=== PATIENT | female | born 1990 | race Caucasian/White ===

== ENCOUNTER 2017-03-08 19:42 | Emergency (ER) | payer BC, OTHER ==
[2017-03-08] MEDS ORDERED: LORazepam 2 MG/ML SYRINGE IV STA (19:52)
[2017-03-08] MEDS ORDERED: SODIUM CHLORIDE 0.9% 1,000 ML IV STA (19:52)
[2017-03-08 19:58] VITALS: BP 125/66; PULSE 113; RESP 16; TEMP 99
--- NOTE | 2017-03-08 20:01 | ED ---
General Adult HPI - General Chief complaint: Seizure Stated complaint: Seizure Time Seen by Provider: 03/08/17 19:44 Source: patient, EMS, RN notes reviewed Mode of arrival: EMS Limitations: no limitations - History of Present Illness Initial comments: 27-year-old female presents to the emergency Department chief complaint of seizure. Patient states she was in her car and the next thing EMS was there. Family and they could not wake her up. Patient does have a history of seizures and when EMS arrived he states she was groggy and now she is return to normal. Patient states she is no pain or discomfort. She was sitting in her heart during the procedure there is no falling or trauma.Patient denies any recent fever, chills, shortness of breath, chest pain, back pain, abdominal pain, nausea vomiting, numbness or tingling, dysuria or hematuria, constipation or diarrhea, headaches or visual changes, or any other current symptoms. - Related Data Home Medications Medication Instructions Recorded Confirmed No Known Home Medications [No 01/01/14 03/08/17 Known Home Medications] Allergies Allergy/AdvReac Type Severity Reaction Status Date / Time cefaclor [From [facility]] Allergy Anaphylaxis Verified 03/08/17 19:44 Review of Systems ROS Statement: Those systems with pertinent positive or pertinent negative responses have been documented in the HPI. ROS Other: All systems not noted in ROS Statement are negative. Past Medical History Past Medical History: Seizure Disorder History of Any Multi-Drug Resistant Organisms: None Reported Past Surgical History: Tubal Ligation Past Anesthesia/Blood Transfusion Reactions: No Reported Reaction Past Psychological History: Bipolar Smoking Status: Current every day smoker Past Alcohol Use History: Occasional Past Drug Use History: None Reported General Exam - General Exam Comments Initial Comments: General: The patient is awake and alert, in no distress, and does not appear acutely ill. Eye: Pupils are equal, round and reactive to light, extra-ocular movements are intact; there is normal conjunctiva bilaterally. No signs of icterus. Ears, nose, mouth and throat: There are moist mucous membranes and no oral lesions. Neck: The neck is supple, there is no tenderness. Cardiovascular: There is a regular rate and rhythm. No murmur, rub or gallop is appreciated. Respiratory: Lungs are clear to auscultation, respirations are non-labored, breath sounds are equal. No wheezes, stridor, rales, or rhonchi. Gastrointestinal: Soft, non-distended, non-tender abdomen without masses or organomegaly noted. There is no rebound or guarding present. No CVA tenderness. Bowel sounds are unremarkable. Back: There is no tenderness to palpation in the midline. There is no obvious deformity. No rashes noted. Musculoskeletal: Normal ROM, no tenderness, There is no pedal edema. There is no calf tenderness or swelling. Sensation intact. Pulses equal bilaterally 2+. Neurological: CN II-XII intact, There are no obvious motor or sensory deficits. Coordination appears grossly intact. Speech is normal. Skin: Skin is warm and dry and no rashes or lesions are noted. Psychiatric: Cooperative, appropriate mood & affect, normal judgment. Limitations: no limitations Course Vital Signs 03/08/17 19:44 Temperature 99 F Pulse Rate 113 H Respiratory 16 Rate Blood Pressure 125/66 O2 Sat by Pulse 98 Oximetry Medical Decision Making - Medical Decision Making 27-year-old female presents to the emergency department with a chief complaint of seizure. At this time we discussed that there is no driving until cleared by neurologist. We would like to do blood work to further evaluate for the patient. At this time she has chose to leave AMA. We did discuss the risks of this. We discussed that she cannot drive. We discussed all the patient's questions. She states she understood but she will be leaving at this time. Disposition Clinical Impression: Generalized seizure Disposition: Left Against Medical Advice Additional Instructions: No driving until cleared by your neurologist. Referrals: Feliciano Ruiz MD [Primary Care Provider] - 1-2 days
== END 2017-03-08 20:10 | disposition left against medical advice (07) ==
LOC: EC 19:42
DX: R56.9 Unspecified convulsions (principal); F17.200 Nicotine dependence, unspecified, uncomplicated; Z88.1 Allergy status to other antibiotic agents
CPT/HCPCS: 99284

== ENCOUNTER 2017-08-18 16:03 | Emergency (ER) | payer BC, OTHER ==
[2017-08-18 16:48] VITALS: RESP 18
--- NOTE | 2017-08-18 17:19 | ED ---
Upper Extremity HPI - General Chief Complaint: Extremity Injury, Upper Stated Complaint: hand injury-[facility] Time Seen by Provider: 08/18/17 17:13 Source: patient, RN notes reviewed Mode of arrival: ambulatory Limitations: no limitations - History of Present Illness Initial Comments: 27-year-old female presents emergency Department chief complaint left hand contusion. Patient states that she was at work and states that she was swinging her arm back fourth and hit a metal cart. Patient states that there is swelling and discomfort. This happened this morning. She states she started urgent care waiting for 3 hours and she was never taken back. She denies any paresthesias. She is right-hand dominant. Patient offers no prior injuries - Related Data Home Medications Medication Instructions Recorded Confirmed Ibuprofen [Motrin] 200 - 400 mg PO Q6HR PRN 03/08/17 08/18/17 Previous Rx's Medication Instructions Recorded Ibuprofen [Motrin] 600 mg PO Q8HR PRN #30 tab 08/18/17 traMADol HCl [Ultram] 50 mg PO Q6H PRN #20 tab 08/18/17 Allergies Allergy/AdvReac Type Severity Reaction Status Date / Time cefaclor [From Ceclor] Allergy Anaphylaxis Verified 08/18/17 17:25 Review of Systems ROS Statement: Those systems with pertinent positive or pertinent negative responses have been documented in the HPI. ROS Other: All systems not noted in ROS Statement are negative. Past Medical History Past Medical History: Seizure Disorder Additional Past Medical History / Comment(s): epilepsy History of Any Multi-Drug Resistant Organisms: None Reported Past Surgical History: No Surgical Hx Reported, Tubal Ligation Past Anesthesia/Blood Transfusion Reactions: No Reported Reaction Past Psychological History: No Psychological Hx Reported Smoking Status: Current every day smoker Past Alcohol Use History: Rare Past Drug Use History: None Reported General Exam Limitations: no limitations General appearance: alert, in no apparent distress Head exam: Present: atraumatic, normocephalic, normal inspection Respiratory exam: Present: normal lung sounds bilaterally. Absent: respiratory distress, wheezes, rales, rhonchi, stridor Cardiovascular Exam: Present: regular rate, normal rhythm, normal heart sounds. Absent: systolic murmur, diastolic murmur, rubs, gallop, clicks Extremities exam: Present: other (Left hand there is mild swelling noted over the second and third metacarpal region there is moderate tenderness, patient reports discomfort with range of motion second third digit neurovascular intact capillary refill less than 2 seconds there is no wrist tenderness) Course Vital Signs 08/18/17 16:44 Temperature 98.2 F Pulse Rate 75 Respiratory 18 Rate Blood Pressure 132/83 O2 Sat by Pulse 99 Oximetry Medical Decision Making - Medical Decision Making 27-year-old female presented unresponsive for left him injury. There is no acute fracture. Patient be discharged on anti-inflammatories. Patient will follow up with [facility] return for any worsening symptoms. Disposition Clinical Impression: Contusion of left hand Disposition: HOME SELF-CARE Condition: Stable Instructions: Contusion in Adults (ED) Additional Instructions: Please return to the Emergency Department if symptoms worsen or any other concerns. Prescriptions: Ibuprofen [Motrin] 600 mg PO Q8HR PRN #30 tab PRN Reason: Pain traMADol HCl [Ultram] 50 mg PO Q6H PRN #20 tab PRN Reason: Pain Referrals: Keesha Macias DO [Primary Care Provider] - 1-2 days Time of Disposition: 17:53
--- NOTE | 2017-08-18 17:43 | XR ---
EXAMINATION TYPE: XR hand complete LT DATE OF EXAM: 08/18/2017 COMPARISON: NONE HISTORY: Pain in first and second metacarpals. Injury. TECHNIQUE: 3 views FINDINGS: I see no fracture nor dislocation. Metacarpals appear intact. Joint spaces are normal. Ther e are no erosions. IMPRESSION: Negative left hand exam.
[2017-08-18 18:24] VITALS: BP 128/78; PULSE 87; TEMP 98.4
== END 2017-08-18 18:22 | disposition home or self-care (01) ==
LOC: EC 16:03
DX: S60.222A Contusion of left hand, initial encounter (principal); Z88.1 Allergy status to other antibiotic agents; W22.8XXA Striking against or struck by other objects, initial encounter; Y92.69 Other specified industrial and construction area as the place of occurrence of the external cause; Y99.0 Civilian activity done for income or pay
CPT/HCPCS: 99283

== ENCOUNTER 2018-01-02 22:10 | Emergency (ER) | payer BC, OTHER ==
--- NOTE | 2018-01-02 23:06 | XR ---
EXAMINATION TYPE: XR foot complete LT DATE OF EXAM: 01/02/2018 COMPARISON: NONE HISTORY: Foot pain and swelling TECHNIQUE: 3 views FINDINGS: Metatarsals are intact. I see no fracture nor dislocation. There is soft tissue swelling of the forefoot. IMPRESSION: Soft tissue swelling. No fracture seen.
--- NOTE | 2018-01-02 23:08 | ED ---
Lower Extremity Injury HPI - General Chief Complaint: Extremity Injury, Lower Stated Complaint: left foot pain Time Seen by Provider: 01/02/18 22:33 Source: patient, RN notes reviewed Mode of arrival: ambulatory Limitations: no limitations - History of Present Illness Initial Comments: 27-year-old female presented emergency department for left foot injury. She states on she dropped a piece of scrap metal. Patient states she is up -to-date on her tetanus. Patient states that she noticed some swelling. She does admit that it's worse when she ambulates on it. Patient states that she is concerned she may have a fracture though she has no history of fracture left foot. - Related Data Previous Rx's Medication Instructions Recorded Ibuprofen [Motrin] 600 mg PO Q8HR PRN #30 tab 08/18/17 Allergies Allergy/AdvReac Type Severity Reaction Status Date / Time cefaclor [From Ceclor] Allergy Anaphylaxis Verified 01/02/18 22:29 Review of Systems ROS Statement: Those systems with pertinent positive or pertinent negative responses have been documented in the HPI. ROS Other: All systems not noted in ROS Statement are negative. Past Medical History Past Medical History: Seizure Disorder Additional Past Medical History / Comment(s): epilepsy History of Any Multi-Drug Resistant Organisms: None Reported Past Surgical History: No Surgical Hx Reported, Tubal Ligation Past Anesthesia/Blood Transfusion Reactions: No Reported Reaction Past Psychological History: No Psychological Hx Reported Smoking Status: Current every day smoker Past Alcohol Use History: Rare Past Drug Use History: None Reported General Exam Limitations: no limitations General appearance: alert, in no apparent distress Neck exam: Present: normal inspection. Absent: tenderness, meningismus, lymphadenopathy Respiratory exam: Present: normal lung sounds bilaterally. Absent: respiratory distress, wheezes, rales, rhonchi, stridor Cardiovascular Exam: Present: regular rate, normal rhythm, normal heart sounds. Absent: systolic murmur, diastolic murmur, rubs, gallop, clicks Extremities exam: Present: other (Left foot there is moderate swelling noted in abrasion. Tenderness with palpation over the second through fifth metatarsal region) Skin exam: Present: warm, dry, intact, normal color. Absent: rash Course Vital Signs 01/02/18 22:25 Temperature 98.6 F Pulse Rate 92 Respiratory 18 Rate Blood Pressure 105/72 O2 Sat by Pulse 97 Oximetry Medical Decision Making - Medical Decision Making 27-year-old female presented for left foot injury. Patient has a left foot contusion x-rays reviewed there is no acute fracture. Patient will continue conservative treatment rest ice elevation and ibuprofen as directed. Disposition Clinical Impression: Contusion of left foot Disposition: HOME SELF-CARE Condition: Stable Instructions: Foot Contusion (ED) Additional Instructions: Please return to the Emergency Department if symptoms worsen or any other concerns. Is patient prescribed a controlled substance at d/c from ED?: No Referrals: Feliciano Ruiz MD [Primary Care Provider] - 1-2 days Time of Disposition: 23:08
[2018-01-02 23:22] VITALS: BP 122/72; PULSE 81; RESP 16; TEMP 98.2
== END 2018-01-02 23:22 | disposition home or self-care (01) ==
LOC: EC 22:10
DX: S90.32XA Contusion of left foot, initial encounter (principal); F17.200 Nicotine dependence, unspecified, uncomplicated; Z88.1 Allergy status to other antibiotic agents; W20.8XXA Other cause of strike by thrown, projected or falling object, initial encounter; Y92.009 Unspecified place in unspecified non-institutional (private) residence as the place of occurrence of the external cause
CPT/HCPCS: 99283

== ENCOUNTER 2018-10-22 10:07 | Emergency (ER) | payer BC, OTHER ==
[2018-10-22] MEDS ORDERED: SODIUM CHLORIDE 0.9% 500 ML 500 ML IV STA (10:09)
[2018-10-22 10:16] VITALS: BP 127/79; PULSE 96; RESP 18; TEMP 98.9
--- NOTE | 2018-10-22 10:20 | ED ---
Seizure HPI - General Stated Complaint: Seizure Time Seen by Provider: 10/22/18 10:09 Source: patient, EMS, RN notes reviewed Mode of arrival: ambulatory Limitations: no limitations - History of Present Illness Initial Comments: 28-year-old female presents emergency Department with chief complaint of seizure. Patient states that she was at work and states that she had a seizure witnessed by her cousin. Patient was brought to emergency department via EMS. Patient was not postictal at that time. Patient does have a history of epilepsy on no current medications. Patient states she's not had seizures several years. Patient denies any headache, dizziness, chest pain, shortness breath. Patient states she did bite her tongue but it is not painful no bleeding. Patient b umped the right side of her face but denies headache, neck pain. Patient denies any focal weakness no blurred vision or nausea vomiting no chest pain or shortness of breath. - Related Data Home Medications Medication Instructions Recorded Confirmed No Known Home Medications 10/22/18 10/22/18 Allergies Allergy/AdvReac Type Severity Reaction Status Date / Time cefaclor [From Ceclor] Allergy Anaphylaxis Verified 10/22/18 10:36 Review of Systems ROS Statement: Those systems with pertinent positive or pertinent negative responses have been documented in the HPI. ROS Other: All systems not noted in ROS Statement are negative. Past Medical History Past Medical History: Seizure Disorder Additional Past Medical History / Comment(s): epilepsy History of Any Multi-Drug Resistant Organisms: None Reported Past Surgical History: No Surgical Hx Reported, Tubal Ligation Past Anesthesia/Blood Transfusion Reactions: No Reported Reaction Past Psychological History: Bipolar, Depression Smoking Status: Current every day smoker Past Alcohol Use History: None Reported, Rare Past Drug Use History: None Reported General Exam Limitations: no limitations General appearance: alert, in no apparent distress Head exam: Present: atraumatic, normocephalic, normal inspection Eye exam: Present: normal appearance, PERRL, EOMI. Absent: scleral icterus, conjunctival injection, periorbital swelling ENT exam: Present: normal oropharynx, mucous membranes moist, TM's normal bilaterally, normal external ear exam, other (Abrasion on the right maxillary region with minimal tenderness). Absent: normal exam (Small tongue injury noted on the right lateral with no active bleeding) Neck exam: Present: normal inspection, full ROM. Absent: tenderness, meningismus, lymphadenopathy Respiratory exam: Present: normal lung sounds bilaterally. Absent: respiratory distress, wheezes, rales, rhonchi, stridor Cardiovascular Exam: Present: regular rate, normal rhythm, normal heart sounds. Absent: systolic murmur, diastolic murmur, rubs, gallop, clicks Extremities exam: Present: normal inspection, full ROM, normal capillary refill. Absent: tenderness, pedal edema, joint swelling, calf tenderness Neurological exam: Present: alert, oriented X3, CN II-XII intact, reflexes normal. Absent: motor sensory deficit Skin exam: Present: warm, dry, intact, normal color. Absent: rash Course Vital Signs 10/22/18 10:10 Temperature 98.9 F Pulse Rate 96 Respiratory 18 Rate Blood Pressure 127/79 O2 Sat by Pulse 100 Oximetry Medical Decision Making - Medical Decision Making Patient left AMA prior to completion of labs, EKG. - Lab Data Lab Results 10/22/18 10/22/18 Range/Units 10:30 10:30 Urine Color Yellow Urine Appearance Clear (Clear) Urine pH 5.0 (5.0-8.0) Ur Specific [place] 1.021 (1.001-1.035) Urine Protein Trace H (Negative) Urine Glucose (UA) Negative (Negative) Urine Ketones Negative (Negative) Urine Blood Negative (Negative) Urine Nitrite Negative (Negative) Urine Bilirubin Negative (Negative) Urine Urobilinogen <2.0 (<2.0) mg/dL Ur Leukocyte Esterase Negative (Negative) Urine HCG, Qual Not Detected (Not Detectd) Disposition Clinical Impression: Generalized seizure Disposition: Left Against Medical Advice Referrals: Feliciano Ruiz MD [Primary Care Provider] - 1-2 days
[2018-10-22 10:44] LABS: Appearance,Urine Clear (Clear); Bilirubin,Urine Negative (Negative); Blood,Urine Negative (Negative); Color,Urine Yellow; Glucose,Urine (UA) Negative (Negative); Ketones,Urine Negative (Negative); Leukocyte Esterase,Urine Negative (Negative); Nitrite,Urine Negative (Negative); Protein,Urine Trace (Negative); Specific Gravity,Urine 1.021 (1.001-1.035); Urobilinogen,Urine <2.0 mg/dL (<2.0)
[2018-10-22 10:47] LABS: Basophils % (A) 1 %; Eosinophils # (A) 0.3 k/uL (0-0.7); Eosinophils % (A) 5 %; HCT 38.7 % (34.0-46.0); HGB 13.2 gm/dL (11.4-16.0); Lymphocytes # (A) 1.8 k/uL (1.0-4.8); Lymphocytes % (A) 36 %; MCH 30.1 pg (25.0-35.0); MCHC 34.1 g/dL (31.0-37.0); MCV 88.3 fL (80.0-100.0); Mean Platelet Volume 8.6; Monocytes # (A) 0.3 k/uL (0-1.0); Monocytes % (A) 7 %; Neutrophils # (A) 2.5 k/uL (1.3-7.7); Neutrophils % (A) 49 %; Platelet Count 171 k/uL (150-450); RBC 4.39 m/uL (3.80-5.40); RDW 13.9 % (11.5-15.5)
[2018-10-22 10:52] LABS: Amphetamine Screen,Urine Detected (NotDetected); Barbiturate Screen,Urine Not Detected (NotDetected); Benzodiazepines Screen,Urine Not Detected (NotDetected); Cocaine Screen,Urine Not Detected (NotDetected); Methadone Screen, Urine Not Detected (NotDetected); Opiate Screen,Urine Not Detected (NotDetected); Oxycodone Screen, Urine Not Detected (NotDetected); Phencyclidine Screen,Urine Not Detected (NotDetected); Tricyclic Antidepressant,Urine Not Detected (NotDetected); Urn Cannabinoid Scrn Not Detected (NotDetected)
[2018-10-22 10:53] LABS: ALT 25 U/L (9-52); AST 21 U/L (14-36); Albumin 4.1 g/dL (3.5-5.0); Alkaline Phosphatase 49 U/L (38-126); Anion Gap 11 mmol/L; Blood Urea Nitrogen 16 mg/dL (7-17); Calcium 9.3 mg/dL (8.4-10.2); Carbon Dioxide 21 mmol/L (22-30); Chloride 108 mmol/L (98-107); Glucose 91 mg/dL (74-99); Sodium 140 mmol/L (137-145); Total Bilirubin 1.2 mg/dL (0.2-1.3); Total Protein 6.8 g/dL (6.3-8.2)
== END 2018-10-22 10:45 | disposition left against medical advice (07) ==
LOC: EC 10:07
DX: G40.409 Other generalized epilepsy and epileptic syndromes, not intractable, without status epilepticus (principal); F17.200 Nicotine dependence, unspecified, uncomplicated; Z88.1 Allergy status to other antibiotic agents; Z53.29 Procedure and treatment not carried out because of patient's decision for other reasons
CPT/HCPCS: 36415; 80053; 80306; 81003; 81025; 85025; 99284

== ENCOUNTER 2022-12-30 10:32 | Emergency (ER) | payer OTHER ==
[2022-12-30 10:53] VITALS: BP 125/84; PULSE 99; RESP 20; TEMP 97.8
[2022-12-30] MEDS ORDERED: Acetaminophen-Codeine 300-30mg TAB PO STA (12:33)
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
--- NOTE | 2022-12-30 13:11 | XR ---
EXAMINATION TYPE: XR wrist complete LT DATE OF EXAM: 12/30/2022 COMPARISON: 08/18/2017 HISTORY: Pain TECHNIQUE: Four views submitted. FINDINGS: The osseous structures are intact. The joint spaces are preserved and there is no acute fracture or dislocation. Small sclerotic lesion involving the hamate bone compatible with benign bone island is stable. IMPRESSION: 1. No acute osseous abnormality.
--- NOTE | 2022-12-30 13:14 | XR ---
EXAMINATION TYPE: XR ankle complete RT DATE OF EXAM: 12/30/2022 COMPARISON: NONE HISTORY: Pain FINDINGS: Three views of the ankle demonstrate the ankle mortise to be intact and symmetric. The joint spaces are preserved. The osseous structures are intact. Tiny bony density is seen between the talus and f ibula on the AP view. IMPRESSION: 1. There is a 2 mm bony density seen adjacent to the fibula and talus on the AP view only. Could be r elated to a tiny avulsion fracture of indeterminate chronicity or loose body. Correlate with point te nderness.
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
[2022-12-30] MEDS ORDERED: VITS A & D-WHITE PET-LANOLIN 5 GM OINT.PACK TOPICAL ONE (13:47)
[2022-12-30] MEDS ORDERED: ACET/COD 300 MG/30 MG STARTER PACK 6 TAB BTL PO STA (13:51)
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
== END 2022-12-30 14:16 | disposition home or self-care (01) ==
LOC: EC 10:32
DX: M50.223 Other cervical disc displacement at C6-C7 level (principal); J35.1 Hypertrophy of tonsils; Z86.59 Personal history of other mental and behavioral disorders; F17.200 Nicotine dependence, unspecified, uncomplicated; Z88.1 Allergy status to other antibiotic agents; Y04.0XXA Assault by unarmed brawl or fight, initial encounter
CPT/HCPCS: 70490; 71250; 74176; 99284

== ENCOUNTER 2025-01-04 10:57 | Day surgery (SDC) | payer OTHER ==
[2025-01-03 09:00] VITALS: BMI 28.3
[2025-01-04] MEDS: IV FLUID CONTINUATION 1,000 ML IV ONE (11:20)
[2025-01-04 11:31] VITALS: TEMP 98.2
[2025-01-04] MEDS: LACTATED RINGERS 1,000 ML IV SCH (11:42)
[2025-01-04] MEDS ORDERED: LIDOCAINE 1% INJ 10MG/ML (20 ML MDV) ONE (12:23)
[2025-01-04] MEDS ORDERED: PROPOFOL 10 MG/ML 20 ML VIAL IV ONE (12:23)
[2025-01-04 12:39] VITALS: RESP 16
[2025-01-04 13:00] VITALS: BP 114/78; PULSE 78
--- NOTE | 2025-01-04 16:59 | PCN ---
PROCEDURE NOTE REQUESTING PHYSICIAN: Dr. Yepez. BRIEF HISTORY: The patient is a 34-year-old pleasant white female scheduled for an elective upper endoscopy as a part of evaluation of intermittent dysphagia to solids for the last 2 years duration. PROCEDURE PERFORMED: EGD with biopsy. PREOPERATIVE DIAGNOSIS: Dysphagia to solids of 2 years duration. ANESTHESIA: IV sedation per Anesthesia. DESCRIPTION OF PROCEDURE: After informed consent was obtained from the patient, she was brought into the endoscopy unit. IV conscious sedation was administered by Anesthesia under continuous monitoring. Initially, the Olympus CF-180 video endoscope was inserted into the mouth, esophagus, and intubated without any difficulty and was gradually advanced into the stomach and duodenum and carefully examined. Bulb and the second part of the duodenum appeared normal. Scope at this time was withdrawn to the stomach, adequately insufflated with air and upon careful examination, mucosa of the antrum had erosive gastritis and biopsies for H pylori were done. The body of the stomach appeared normal. On retroflexion, cardia and the fundus appeared normal. The scope was then withdrawn to the esophagus. The GE junction was located at 39 cm from the incisors. It appeared regular with no erythema, erosions, or ulcerations. The entire length of the esophagus appeared normal. There was no evidence of esophagitis or esophageal stricture. Rest of the esophagus appeared normal. Multiple biopsies were done from the mid and distal esophagus to rule out eosinophilic esophagitis, and the patient tolerated the procedure well. IMPRESSION: 1. Normal-appearing esophagus with no evidence of esophagitis or esophageal stricture. 2. Antral erosive gastritis. RECOMMENDATIONS: Findings of this examination were discussed with the patient as well as the family. She was advised to follow up with the biopsy results. If she has worsening symptoms, follow up in office for further evaluation. MMODL / IJN: [id number] /
== END 2025-01-04 13:27 | disposition home or self-care (01) ==
LOC: ORWHC2ENDO 10:57
PROVIDERS: ATTEND Internal Medicine Gastroenterology
DX: K29.60 Other gastritis without bleeding (principal); R13.10 Dysphagia, unspecified
CPT/HCPCS: 81025; 43239; J2003; J2704; 88305; 88312